=== PATIENT | male | born 1950 | race Caucasian/White ===

== ENCOUNTER → 2017-06-08 | Outpatient (REF) ==
[~2017-06-08] MED LIST: ASPIRIN E.C. 8181 MG PO; CAPOTEN 12.512.5 MG PO; COREG 6.256.25 MG/TA PO; FERROUS SU325 MG/TAB PO; FOLIC ACID 11 MG/TA1 PO; IPRATROPIUM BROM3 M1; K-TAB20 PO; LASIX 40MG TABL40 MG PO; LIPITOR20 MG PO; LOVAZA1 GM PO; NITROSTAT0.4 MG/TAB SL; THIAMINE 1100 MG/TAB PO
== END ==
LOC: ZLAB.WCH 18:26
DX: Z01.89 Encounter for other specified special examinations (principal)

== ENCOUNTER 2017-07-21 12:48 | Day surgery (SDC) | payer MEDICARE, OTHER ==
[~2017-07-21] VITALS: Ht 165.1 cm; Wt 65.0 kg
[2017-07-21 13:51] LABS: BASO # 0.1 (0.0-0.2); BASO % 0.6 % (0.0-2.0); EOS # 0.2 (0.0-0.7); EOS % 1.9 % (0-4.0); GRAN # 4.4 (1.4-6.5); GRAN % 55.4 % (42.2-75.2); HEMATOCRIT 39.4 % (42.0-52.0); HEMOGLOBIN 12.9 g/dl (13.5-18.0); LYMPH # 2.7 (1.2-3.4); LYMPH % 33.4 % (20.0-51.0); MEAN CELL VOLUME 105 fl (80.0-100.0); MEAN CORPUSCULAR HEMOGLOBIN 34 pg (27.0-31.0); MEAN CORPUSCULAR HGB CONC 33 g/dl (33.0-37.0); MEAN PLATELET VOLUME 11.1 fl (7.4-10.4); MONO # 0.7 (0.1-0.6); MONO % 8.2 % (1.7-9.3); PLATELET COUNT 282 K/mm3 (130-400); RED BLOOD COUNT 3.75 M/mm3 (4.20-5.60)
[2017-07-21 14:00] VITALS: BP 149/101; PULSE 94; TEMP 98.1
[2017-07-21 14:10] LABS: CALCIUM 10.2 mg/dL (8.4-10.2); CREATININE, serum 1.22 mg/dL (0.66-1.25)
[2017-07-21] MEDS ORDERED: VITAMIN B11000 MCG/M IM (14:27)
[2017-07-21] MEDS ORDERED: SYNTHROID0.05 MG/TA PO (14:27)
[2017-07-21 18:20] VITALS: BP 134/82; PULSE 85
[2017-07-21 18:35] VITALS: BP 136/79; PULSE 82
[2017-07-21 22:09] VITALS: BP 151/96; PULSE 103; TEMP 98
== END 2017-07-21 23:00 | disposition home or self-care (01) ==
LOC: SDCO 12:48 → JCC 18:25 → SDCO 23:00
PROVIDERS: Dentist Oral and Maxillofacial Surgery
DX: K02.9 Dental caries, unspecified (principal); K05.229 Aggressive periodontitis, generalized, unspecified severity; E53.8 Deficiency of other specified B group vitamins; N13.8 Other obstructive and reflux uropathy; I25.5 Ischemic cardiomyopathy; I25.10 Atherosclerotic heart disease of native coronary artery without angina pectoris; F10.20 Alcohol dependence, uncomplicated; D64.9 Anemia, unspecified; E03.9 Hypothyroidism, unspecified; I08.0 Rheumatic disorders of both mitral and aortic valves; F17.210 Nicotine dependence, cigarettes, uncomplicated; M19.90 Unspecified osteoarthritis, unspecified site; Z86.73 Personal history of transient ischemic attack (TIA), and cerebral infarction without residual deficits
CPT/HCPCS: OP; J1100; J1170; J1644; J2250; J2405; J2704; J7030

== ENCOUNTER → 2018-01-18 | Outpatient (REF) ==
[~2018-01-18] MED LIST changes: +SYNTHROID0.05 MG/TA PO; +VITAMIN B11000 MCG/M IM
[2018-01-18 18:39] LABS: PSA-TOTAL 1.77 ng/mL (0-4)
[2018-01-18 18:59] LABS: THYROID STIMULATING HORMONE 1.15 uIU/mL (0.465-4.680)
== END ==
LOC: ZLAB.WCH 17:48
PROVIDERS: Internal Medicine
DX: Z12.5 Encounter for screening for malignant neoplasm of prostate (principal)
CPT/HCPCS: G0103

== ENCOUNTER → 2018-08-02 | Outpatient (REF) | LOC: ZLAB.WCH 16:12 | DX: Z01.89 Encounter for other specified special examinations (principal) ==

== ENCOUNTER → 2021-05-06 | Outpatient (REF) | LOC: ZLAB.WCH 18:53 | DX: Z01.89 Encounter for other specified special examinations (principal) ==